=== PATIENT | male | born 1970 ===

== ENCOUNTER 2022-08-08 19:26 | Emergency (ER) | payer OTHER ==
[~2022-08-08] VITALS: Ht 182.9 cm; Wt 104.3 kg
[~2022-08-08 19:26] MED LIST: ATENOLOL50 MG
[2022-08-08] MEDS ORDERED: NEURONTIN300 MG (19:46)
[2022-08-08] MEDS ORDERED: ATORVASTATIN CA10 MG (19:46)
[2022-08-08] MEDS ORDERED: COZAAR25 MG (19:47)
== END 2022-08-08 23:19 | disposition home or self-care (01) ==
LOC: ER 19:26
DX: R42 Dizziness and giddiness (principal)